=== PATIENT | male | born 1935 | race Caucasian/White ===

== ENCOUNTER 2018-11-15 09:53 | Emergency (ER) | payer MEDICARE, OTHER ==
[2018-11-15] MEDS ORDERED: Adacel (T-DAP) 0.5 ML SYRINGE ONE (10:51)
[2018-11-15] MEDS ORDERED: Bacitracin Zinc 1 Packet ONE (11:04)
--- NOTE | 2018-11-15 17:45 | RAD ---
LEFT WRIST THREE VIEWS: 11/15/18 No acute fracture was seen. An old healed fifth metacarpal injury is noted. Some degenerative changes are seen in the first MCP joint. The carpal bones all appeared intact. IMPRESSION: No acute bony finding. POS: HOME
== END 2018-11-15 11:10 | disposition home or self-care (01) ==
LOC: BURERS 09:53
DX: S61.512A Laceration without foreign body of left wrist, initial encounter (principal); F17.220 Nicotine dependence, chewing tobacco, uncomplicated; W20.8XXA Other cause of strike by thrown, projected or falling object, initial encounter
CPT/HCPCS: 90471; 90715

== ENCOUNTER 2020-05-15 10:44 | Emergency (ER) | payer MEDICARE ==
[2020-05-15 11:32] LABS: #Basophils 0.1 thou/uL (0.0-0.2); #Eosinphils 0.1 thou/uL (0.0-0.7); #Lymphocytes 1.2 thou/uL (1.20-3.40); #Monocytes 0.4 thou/uL (0.11-0.59); #Neutrophils 7.3 thou/uL (1.40-6.50); %Basophils 0.6 % (0.0-1.0); %Eosinophils 0.8 % (0.0-10.0); %Lymphocytes 13.7 % (21.0-51.0); %Neutrophils 80.8 % (42.0-75.0); Hemoglobin 14.2 g/dL (14.0-18.0); Mean Corpuscular HGB CONC 30.9 g/dL (32.0-36.0); Mean Corpuscular Hemoglobin 27.7 pg (27.0-31.0); Mean Corpuscular Volume 89.4 fL (78.0-98.0); Mean Platelet Volume 6.6 fL (7.4-10.4); Platelet Count 234 thou/uL (130-400); RBC Distribution Width 13.4 % (11.5-14.5); Red Blood Cell (RBC) Count 5.14 mill/uL (4.70-6.10)
[2020-05-15 11:49] LABS: ALT (SGPT) 25 U/L (8-55); AST (SGOT) 23 U/L (5-34); Albumin 4.2 g/dL (3.4-4.8); Alkaline Phosphatase 132 U/L (40-110); Anion Gap 14 mmol/L (10-20); BUN (Urea Nitrogen) 15 mg/dL (8.4-25.7); Bilirubin, Total 0.4 mg/dL (0.2-1.2); Calc. Creatinine Clearance 0 mL/min (70-130); Carbon Dioxide 26 mmol/L (23-31); Chloride 106 mmol/L (98-107); Globulin 3.4 g/dL (2.4-3.5); Glucose 141 mg/dL (83-110); Magnesium 2.2 mg/dL (1.6-2.6); Potassium 4.2 mmol/L (3.5-5.1); Protein, Total 7.6 g/dL (5.8-8.1); Sodium 142 mmol/L (136-145)
[2020-05-15] MEDS ORDERED: Aspirin Chewable 81 MG TAB ONE ×2 (13:01)
--- NOTE | 2020-05-15 18:47 | CT ---
CT OF THE BRAIN WITHOUT CONTRAST: Date: 05/15/2020 No prior films available for comparison. The ventricles are normal in size for age and mild atrophy. No intracranial bleeding or extra-axial h ematoma seen. There is no sign of mass, edema, or stroke. The skull appears intact. The visible paran annmarie sinuses are clear. IMPRESSION: No acute intracranial findings. Preliminary report called to Dr. Mayer at 1220 hours on 05/15/2020. CODE CR. POS: HOME
--- NOTE | 2020-05-15 18:47 | RAD ---
PORTABLE CHEST: Date: 05/15/2020 Comparison is made with the 09/06/2014 study. The cardiac size is the same. Median sternotomy sutures are noted as before. There is no congestive c hange, pleural effusion, or pulmonary infiltrate of concern. The mediastinum appears normal. Calcific ation is seen in the aortic arch. IMPRESSION: No acute thoracic finding. POS: HOME
== END 2020-05-15 14:20 | disposition short-term general hospital (02) ==
LOC: BURERS 10:44
DX: R55 Syncope and collapse (principal); R07.9 Chest pain, unspecified; I25.2 Old myocardial infarction; I10 Essential (primary) hypertension; E78.5 Hyperlipidemia, unspecified; E78.00 Pure hypercholesterolemia, unspecified; F17.220 Nicotine dependence, chewing tobacco, uncomplicated; Z79.899 Other long term (current) drug therapy
CPT/HCPCS: 36415; 70450; 71045; 80053; 83605; 83735; 84443; 84484; 85025; 85379; 93005; 94760

== ENCOUNTER 2023-12-08 14:39 | Emergency (ER) | payer MEDICARE ==
[2023-12-08 15:04] LABS: #Basophils 0.1 thou/uL (0.0-0.2); #Eosinphils 0.3 thou/uL (0.0-0.7); #Lymphocytes 3.1 thou/uL (1.20-3.40); #Monocytes 0.7 thou/uL (0.11-0.59); #Neutrophils 5.3 thou/uL (1.40-6.50); %Basophils 1.3 % (0.0-1.0); %Eosinophils 3.1 % (0.0-10.0); %Lymphocytes 32.6 % (21.0-51.0); %Monocytes 7.7 % (0.0-10.0); %Neutrophils 55.4 % (42.0-75.0); Hemoglobin 12.7 g/dL (14.0-18.0); Mean Corpuscular Hemoglobin 25.6 pg (27.0-31.0); Mean Corpuscular Volume 82.6 fl (78.0-98.0); Mean Platelet Volume 5.5 fL (7.4-10.4); Platelet Count 283 10x3/uL (130-400); RBC Distribution Width 15.7 % (11.5-14.5); Red Blood Cell (RBC) Count 4.96 mill/uL (4.70-6.10); White Blood Cell (WBC) Count 9.5 10x3/uL (4.8-10.8)
[2023-12-08 15:18] LABS: Acetaminophen Less than 10 mcg/mL (10.0-30.0); Alcohol Less than 10.0 mg/dL (Less than 10); Salicylate Less than 8.0 mg/dL (15.0-30.0)
[2023-12-08 15:20] LABS: ALT (SGPT) 15 U/L (8-55); AST (SGOT) 20 U/L (5-34); Albumin 4.1 g/dL (3.4-4.8); Anion Gap 14 mmol/L (10-20); BUN (Urea Nitrogen) 16 mg/dL (8.4-25.7); Bilirubin, Total 0.4 mg/dL (0.2-1.2); Calc. Creatinine Clearance 0 mL/min (70-130); Calcium 9.1 mg/dL (7.8-10.44); Carbon Dioxide 22 mmol/L (23-31); Chloride 109 mmol/L (98-107); Estimated GFR 64; Globulin 2.9 g/dL (2.4-3.5); Glucose 109 mg/dL (83-110); Potassium 4.2 mmol/L (3.5-5.1); Sodium 141 mmol/L (136-145)
[2023-12-08 15:22] LABS: Troponin I 0.012 ng/mL (< 0.028)
[2023-12-08 15:26] LABS: Alkaline Phosphatase 119 U/L (40-110)
[2023-12-08 15:32] LABS: Bilirubin Negative (Negative); Blood, Urine Trace (Negative); Clarity Clear (Clear); Glucose, Urine (Dipstick) Negative (Negative); Ketone, Urine Negative (Negative); Leukocyte Negative (Negative); Nitrite Negative (Negative); Protein, Urine (Dipstick) Negative (Neg-Trace); Urobilinogen 0.2 mg/dL (Less than 2); pH, Urine 7.5 (5.0-9.0)
[2023-12-08 15:39] LABS: Bacteria/HPF None Seen HPF (None Seen); CAUTI Indications for Culture Alt mental st,lethar; Squamous Epithelial 0-3 HPF (0-3); WBC/HPF None Seen HPF (0-3)
[2023-12-08 15:40] LABS: Urine Culture Reflex No No
[2023-12-08 15:41] LABS: Amphetamine Not Detected (NotDetected); Barbiturates Screen Not Detected (NotDetected); Benzodiazepine Screen Not Detected (NotDetected); Cocaine Metabolite Screen Not Detected (NotDetected); Methadone Not Detected (NotDetected); Methamphetamine Not Detected (NotDetected); Opiate Screen Not Detected (NotDetected); Oxycodone Screen Not Detected (NotDetected); Phencyclidine (PCP) Not Detected (NotDetected); THC/Cannabinoid Screen Not Detected (NotDetected); Tricyclic Screen Not Detected (NotDetected)
[2023-12-08 15:44] LABS: Influenza A by NAA Not Detected (NotDetected); Influenza B by NAA Not Detected (NotDetected); SARS-CoV-2 NAA Rapid Test Not Detected (NotDetected)
== END 2023-12-08 18:09 | disposition short-term general hospital (02) ==
LOC: BURERS 14:39
DX: R41.82 Altered mental status, unspecified (principal); I25.10 Atherosclerotic heart disease of native coronary artery without angina pectoris; I25.2 Old myocardial infarction; E78.00 Pure hypercholesterolemia, unspecified; I10 Essential (primary) hypertension; F17.220 Nicotine dependence, chewing tobacco, uncomplicated; Z95.0 Presence of cardiac pacemaker; Z79.82 Long term (current) use of aspirin; Z79.899 Other long term (current) drug therapy
CPT/HCPCS: 0240U; 70450; 71046; 80053; 80306; 80307; 81001; 83880; 84484; 85025; 93005; 94760

== ENCOUNTER 2024-05-05 15:06 | Inpatient (IN) | payer MEDICARE ==
[2024-05-06] MEDS ORDERED: traMADol HCl 50 MG TAB PO PRN (11:33)
[2024-05-06] MEDS: Nicotine 7 MG PATCH TD SCH (16:28)
[2024-05-06] MEDS: Polyethylene Glycol 3350 17 GM Packet PO SCH (21:33)
[2024-05-06] MEDS: Lisinopril 20 MG TAB PO SCH (21:33)
[2024-05-06] MEDS: Senokot S 8.6-50 MG TAB PO SCH (21:34)
[2024-05-06] MEDS: Amlodipine 5 MG TAB PO SCH (21:34)
[2024-05-07 05:01] LABS: #Basophils 0.1 thou/uL (0.0-0.2); #Eosinophils 0.4 thou/uL (0.0-0.7); #Lymphocytes 1.8 thou/uL (1.20-3.40); #Monocytes 0.7 thou/uL (0.11-0.59); #Neutrophils 5.8 thou/uL (1.40-6.50); %Eosinophils 4.2 % (0.0-10.0); %Lymphocytes 20.8 % (21.0-51.0); %Monocytes 7.6 % (0.0-10.0); %Neutrophils 66.4 % (42.0-75.0); Hematocrit 41.4 % (42.0-52.0); Hemoglobin 13.1 g/dL (14.0-18.0); Mean Corpuscular HGB CONC 31.5 g/dL (32.0-36.0); Mean Corpuscular Hemoglobin 26.6 pg (27.0-31.0); Mean Corpuscular Volume 84.3 fl (78.0-98.0); Mean Platelet Volume 5.1 fL (7.4-10.4); Platelet Count 559 10x3/uL (130-400); RBC Distribution Width 15.1 % (11.5-14.5); Red Blood Cell (RBC) Count 4.91 mill/uL (4.70-6.10); White Blood Cell (WBC) Count 8.7 10x3/uL (4.8-10.8)
[2024-05-07 05:18] LABS: ALT (SGPT) 19 U/L (8-55); AST (SGOT) 20 U/L (5-34); Albumin 2.8 g/dL (3.4-4.8); Alkaline Phosphatase 207 U/L (40-110); Anion Gap 13 mmol/L (10-20); BUN (Urea Nitrogen) 16 mg/dL (8.4-25.7); Bilirubin, Total 0.8 mg/dL (0.2-1.2); Calc. Creatinine Clearance 44 mL/min (70-130); Calcium 8.8 mg/dL (7.8-10.44); Carbon Dioxide 22 mmol/L (23-31); Chloride 109 mmol/L (98-107); Estimated GFR 81; Globulin 3.4 g/dL (2.4-3.5); Glucose 89 mg/dL (83-110); Potassium 4.2 mmol/L (3.5-5.1); Protein, Total 6.2 g/dL (5.8-8.1); Sodium 140 mmol/L (136-145)
[2024-05-07] MEDS: Atorvastatin Calcium 40 MG TAB PO SCH (08:24)
[2024-05-07] MEDS: Spironolactone 25 MG TAB PO SCH (08:24)
[2024-05-07] MEDS: Mirabegron ER 25 MG ER.TAB PO SCH (08:25)
[2024-05-07] MEDS: Pantoprazole DR 40 MG TAB PO SCH (08:25)
[2024-05-07] MEDS: Aspirin 81 mg Enteric Coated Tablet PO SCH (08:25)
[2024-05-07] MEDS: Acetaminophen 325 MG TAB PO PRN (09:45)
[2024-05-11] MEDS: Acetaminophen 325 MG TAB PO SCH (09:40)
[2024-05-11] MEDS: Senokot S 8.6-50 MG TAB PO PRN (19:49)
[2024-05-12] MEDS: Melatonin 3 MG TAB PO PRN (00:18)
[2024-05-12 06:29] VITALS: TEMP 98.2
[2024-05-12 08:47] VITALS: BP 128/76
== END 2024-05-12 10:00 | DRG 560 ==
LOC: BURMED 05-06 10:57
PROVIDERS: ADMIT Family Medicine; ATTEND Family Medicine
PROC: 30233N0 Transfusion of Autologous Red Blood Cells into Peripheral Vein, Percutaneous Approach (ICD-10-PCS; principal; 2024-05-06)
PROC: F07Z9ZZ Gait Training/Functional Ambulation Treatment (ICD-10-PCS; 2024-05-06)
DX: M97.02XD Periprosthetic fracture around internal prosthetic left hip joint, subsequent encounter (principal); E44.1 Mild protein-calorie malnutrition; R41.82 Altered mental status, unspecified; F01.B0 Vascular dementia, moderate, without behavioral disturbance, psychotic disturbance, mood disturbance, and anxiety; R53.81 Other malaise; R53.1 Weakness; D64.9 Anemia, unspecified; Z79.82 Long term (current) use of aspirin; Z79.899 Other long term (current) drug therapy
CPT/HCPCS: 36415; 80053; 85025